=== PATIENT | female | born 1940 | race African-American/Black ===

== ENCOUNTER → 2020-11-29 | Outpatient (CLI) | payer MEDICARE ==
[~2020-11-29] MED LIST: AMLO-187 PO; BUPIVACAINE MPF 0.25% 10 ML VIAL. ONE; CALC500T30 PO; CARV25TA2 PO; DICL75TA PO; DORZ10DR7 OP; IOHEXOL 180 MG/ML 10 ML VIAL. ONE; LATA7.5D OU; METF850T8 PO; PRAV20TA2 PO; ROPI0.5T4 PO; TRIA1CAP3 PO; [UNRECOGNIZED DRUG - OTHER]; methylPREDNISolone ACETATE 40 MG/ML VIAL. ONE; methylPREDNISolone ACETATE 80 MG/ML VIAL. ONE; vitamin d3 PO
--- NOTE | 2020-11-29 12:42 | PDOC1 ---
INITIAL PAIN CONSULT DATE OF SERVICE: DOS: DATE: 11/29/20 TIME: 12:33 CHIEF COMPLAINT: Chief Complaint: Low back and left greater than right lower extremity pain HISTORY OF PRESENT ILLNESS: 40-year-old female presents history of pain low back bilateral lower extremities worse on the left than the right for about 1 year not the result of any specific injury or accident that she is aware of is getting worse with time and walking standing noticeable with changing positions weightbearing especially with walking and standing in 1 spot for more than 5 to 10 minutes. Patient reports is in the low back bilaterally somewhat worse on the left than the right some in the legs as well the legs ache and hurt with some pain in the ankles as well bilaterally patient reports is a sharp pain in the back at times sometimes throbbing aching shooting in the legs mostly in the posterior aspect also in the lateral aspect and medial calves as well as the ankles patient has had physical therapy and reports this was helpful but only temporarily also is doing e xercising daily and reports this helps only to a small amount as well. Patient rates her disability rating 0-10 10 being worst is a 7 with family home responsibilities and occupational activity 6 with recreation social activity 10 with self-care and 9 with life support activities. Patient reports it wakes her from sleep least once or twice a night on most nights reports that it can affect her bowel and bladder control but no incontinence just increased frequency with pain with urinary frequency. Patient reports it does affect her ability to walk does have a walker and a cane but uses a cane at home mostly but does not have with her today. Patient is been taking Tylenol [id number] which she reports does help by about 20 to 25% but only temporarily as well. Patient reports no loss of motor function but significant fatigability of the legs she feels that she is with walking since the pain is gotten worse over the past year as well. PAST MEDICAL HISTORY: PMH: Arthritis hypertension shortness of breath type 2 diabetes, cataracts PREVIOUS SURGERIES: Past Surgical Hx: Cataract extraction, hysterectomy CURRENT MEDICATIONS: Current Meds: Active Scripts Medications Dose Route/Sig Max Daily Dose Days Date Category Dorzolamide-Timolol Eye Drops (Dorzolamide Hcl/Timolol Maleat) 10 Ml Drops 10 Ml OP HS 11/29/20 Reported Latanoprost 0.005% Eye Drop (Latanoprost/Pf) 7.5 Ml Drops 1 Drop OU QHS 11/29/20 Reported [vitamin d3] 1 PO 11/29/20 Reported Calcium (Calcium Carbonate) 500 Mg Tablet 1,000 Mg PO DAILY 11/29/20 Reported [centrum mini wonem] 1 Cap 11/29/20 Reported Ropinirole Hcl 0.5 Mg Tablet 0.5 Mg PO HS 11/29/20 Reported Diclofenac Sodium 75 Mg Tablet.dr 75 Mg PO DAILY 11/29/20 Reported Metformin Hcl 850 Mg Tablet 850 Mg PO [id number] 11/29/20 Reported Pravastatin Sodium 20 Mg Tablet 1 Tab PO DAILY 11/29/20 Reported Triamterene-Hctz 37.5-25 Mg Cp (Triamterene/Hydrochlorothiazid) 1 Each Capsule 1 Cap PO DAILY 11/29/20 Reported Carvedilol 25 Mg Tablet 25 Mg PO BIDWMEALS 11/29/20 Reported Amlodipine Besylate 10 Mg Tablet 10 Mg PO DAILY 11/29/20 Reported ALLERGIES; Allergies: Coded Allergies: Sulfa (Sulfonamide Antibiotics) (Verified Allergy, Intermediate, rash, itching, 11/29/20) FAMILY HISTORY: Family Hx: No major medical problems or conditions that she is aware of. SOCIAL HISTORY: Social Hx: Patient does not maninder alcohol does not smoke not use any illegal illicit or recreational drugs is lives locally in [facility] and reports she is currently retired REVIEW OF SYSTEMS: ROS: Positive for those items mentioned in history of present illness, all systems are reviewed, otherwise negative ,and are complete full and well-documented on patient's chart. PHYSICAL EXAM: VS: Blood pressure is 130/73 pulse 77 respirations 18 temperature 90.3 F height is 5 foot weight is 148 pounds PE: PHYSICAL EXAMINATION: GENERAL: The patient is awake, alert, oriented, appropriate, very pleasant demeanor HEENT: Shows normocephalic, atraumatic. Extraocular movements are intact and symmetrical. Oral cavity: Mucous membranes moist and pink. NECK: Shows anterior throat supple without palpable lymphadenopathy noted. Swallow reflex symmetrical. CHEST: Shows normal on inspection. Breath sounds are clear bilaterally, distant but no rales rhonchi or wheezes auscultated. HEART: Shows S1, S2 clear. No murmurs auscultated. ABDOMEN: Soft, nontender, nondistended, obese. No palpable organomegaly is noted. No rebound or guarding demonstrated. BACK: Shows spine grossly in the midline. Normal-appearing cervical lordotic curvature. There is mildly increased thoracic kyphosis, some flattening of the lumbar lordotic curvature. Lumbar paraspinous muscles show symmetrical on inspection, on palpation shows some moderate tenderness diffusely throughout the upper, middle and lower distribution of the paraspinous muscles without specific trigger points, without radiation of pain. The patient has good rotational motion of the lumbar spine, both laterally as well as extension and flexion without significant difficulty. No tenderness over the spinous processes, sacrum or sacroiliac regions. EXTREMITIES: Lower extremities show deep tendon reflexes 1+ in the patellar and tendo calcaneus tendons. Motor exam is 5 on a scale of 5 with right dorsiflexion, extension, quadriceps and hamstring flexion and 4/5 on the left. Peripheral pulses are 1+ posterior tibial. No peripheral edema is noted bila terally. Lower extremities are warm and dry to touch, equal in color and appearance. Straight leg raise noted to be negative on the right, left side is positive at approximately 45 degrees decreased with knee flexion. Gaenslen's and Zurdo's maneuvers are negative bilaterally. The patient is able to stand, needs help with the arms of the chair to get up from seated position walking with a slight favoring gait does appear to favor the left lower extremity slightly not use any assistive devices but again reports she has a cane and walker she uses at home. SKIN: Shows warm and dry, good turgor. No edema. No sores, rashes or bruising throughout. IMPRESSION: Impression: 80-year-old female with approximate 1 year history increasing pain low back into the bilateral lower extremities left greater than right in a radicular fashion following L4-5 dermatomal distribution. MRI scan lumbar spine showing L4-5 grade 1 anterolisthesis with advanced facet arthropathy and central canal stenosis AP diameter at L4-5 also L3-4 with reduced AP diameter of the central canal advanced facet arthropathy and thickening the posterior ligament with a circumferential annular disc bulge L5- S1 showing advanced facet arthropathy and circumferential osteophytes moderate to severe bilateral neuroforaminal encroachment. Arthritis Hypertension Type 2 diabetes Plan: Options were discussed with the patient including conservative medical management continued physical therapies and interventional techniques. Patient would like to interventional techniques as she is done physical therapies and is doing stretching strength exercises on her own currently daily. We discussed a lumbar epidural steroid injection using descriptions as well as anatomical models to describe the procedure. Patient will wait for preauthorization with her insurance provider and once this is authorized we will plan on translaminar approach L4-5 epidural steroid injection. In the meantime, patient will continue with stretching and strength exercises daily and Tylenol orally as currently. CARSON GREENFIELD MD Nov 29, 2020 12:42
== END | disposition home or self-care (01) ==
LOC: PNCL 10:46
PROVIDERS: ATTEND Anesthesiology
DX: M54.5 Low back pain (principal); M79.604 Pain in right leg; M19.90 Unspecified osteoarthritis, unspecified site; I10 Essential (primary) hypertension; E11.9 Type 2 diabetes mellitus without complications; Z90.710 Acquired absence of both cervix and uterus; Z98.890 Other specified postprocedural states; Z79.899 Other long term (current) drug therapy; Z79.84 Long term (current) use of oral hypoglycemic drugs; Z88.2 Allergy status to sulfonamides
CPT/HCPCS: G0463; J1030; J1040; J3490; Q9965

== ENCOUNTER → 2020-12-13 | Outpatient (CLI) | payer MEDICARE ==
[~2020-12-13] MED LIST changes: -BUPIVACAINE MPF 0.25% 10 ML VIAL. ONE
--- NOTE | 2020-12-13 10:41 | PDOC ---
Progress Note - Pain Clinic Date of Service: DOS: DATE: 12/13/20 TIME: 10:38 Diagnosis: Dx: Lumbar radiculopathy with lumbar degenerative disc disease History or Present Illness: HPI: 80-year-old female returns for follow-up status post initial evaluation and preauthorization for lumbar epidural steroid injection. Patient reports still significant pain low back bilateral lower extremities posterior gluteus posterior lateral thigh lateral anterior thighs although it is believed to be improved by about 40% without any modalities thus far. Patient reports still pain with walking standing changing positions better with sitting or laying down generally wakes her from sleep about once every 6 hours or so patient reports no new motor or sensory deficits no new bowel or bladder incontinence no complaints. Patient rates her pain is a 10 on scale 10 is worst in the past week and a 10 on average and an 8 at its least and is an 8 today patient reports sharp and aching sometimes unbearable with walking and standing. Physical Exam: VS: Blood pressure is 133/74 pulse 73 respirations 18 temperature 98.1 F height 5 foot weight is 141 pounds PE: PHYSICAL EXAMINATION: GENERAL: The patient is awake, alert, oriented, appropriate, very pleasant demeanor HEENT: Shows normocephalic, atraumatic. Extraocular movements are intact and symmetrical. Oral cavity: Mucous membranes moist and pink. NECK: Shows anterior throat supple without palpable lymphadenopathy noted. Swallow reflex symmetrical. CHEST: Shows normal on inspection. Breath sounds are clear bilaterally. HEART: Shows S1, S2 clear. No murmurs auscultated. ABDOMEN: Soft, nontender, nondistended. No palpable organomegaly is noted. No rebound or guarding demonstrated. BACK: Shows spine grossly in the midline. Normal-appearing cervical lordotic curvature. There is slightly increased thoracic kyphosis, some minor flattening of the lumbar lordotic curvature. Lumbar paraspinous muscles show symmetrical on inspection, on palpation shows some moderate tenderness diffusely throughout the upper, middle and lower distribution of the paraspinous muscles without spe cific trigger points, without radiation of pain. The patient has good rotational motion of the lumbar spine, both laterally as well as extension and flexion without significant difficulty. No tenderness over the spinous processes, sacrum or sacroiliac regions. EXTREMITIES: Lower extremities show deep tendon reflexes 1+ in the patellar and tendo calcaneus tendons. Motor exam is 5 on a scale of 5 with right dorsiflexion, extension, quadriceps and hamstring flexion and 4/5 on the left. Peripheral pulses are 1+ posterior tibial. No peripheral edema is noted bilaterally. Lower extremities are warm and dry to touch, equal in color and appearance. SKIN: Shows warm and dry, good turgor. No edema. No sores, rashes or bruising throughout. Procedure: Procedure: Options discussed with patient. Patient chart was reviewed as her current medication regimen updated current review of systems updated today as well. We will proceed with a lumbar epidural steroid injection stable fluoroscopic guidance. Risks were discussed including but not limited to: Bleeding, infection, possibility of epidural hematoma and subsequent neurological compromise, dural puncture, headaches, spinal cord and/or nerve damage, side effects of steroid medication, and poor results regarding pain control. Patient understands and wished to proceed. Patient will return to the clinic in a pproximate 2 weeks for follow-up, was counseled as return appointment activity level and side effects to be aware of. Medication Injected: Med Injected: Procedure is lumbar epidural steroid injection under local anesthetic using sterile prep and drape at the L4-5 level using C-arm fluoroscopic guidance in both AP and lateral views medications injected is 120 mg Depo-Medrol +10mL preservative-free normal saline and 2 mL contrast- condition at discharge is stable patient tolerated procedure well had no complications. Condition at Discharge: Condition at Discharge: Condition at discharge stable, patient already procedure well and had no complications. CARSON GREENFIELD MD December 13, 2020 10:41
--- NOTE | 2020-12-13 10:42 | PDOC4 ---
PROCEDURE Procedure Patient was consented for lumbar epidural steroid injection. Risks were dis cussed including but not limited to: Bleeding, infection, possibility of epidural hematoma and subsequent neurological compromise, dural puncture, headaches, spinal cord and/or nerve damage, side effects of steroid medication, and poor results regarding pain control. Patient understands and wished to proceed. Procedure is lumbar epidural steroid injection under local anesthetic using sterile prep and drape at the L4-5 level using C-arm fluoroscopic guidance in both AP and lateral views medications injected is 120 mg Depo-Medrol +10mL preservative-free normal saline and 2 mL contrast- condition at discharge is stable patient tolerated procedure well had no complications. CARSON GREENFIELD MD December 13, 2020 10:42
== END | disposition home or self-care (01) ==
LOC: PNCL 09:36
PROVIDERS: ATTEND Anesthesiology
DX: M51.16 Intervertebral disc disorders with radiculopathy, lumbar region (principal); Z79.84 Long term (current) use of oral hypoglycemic drugs; Z79.899 Other long term (current) drug therapy; Z88.2 Allergy status to sulfonamides
CPT/HCPCS: 62323; J1030; J1040; Q9965